=== PATIENT | male | born 2000 | race Caucasian/White ===

== ENCOUNTER 2024-06-09 16:04 | Emergency (ER) | payer OTHER ==
[2024-06-09] MEDS: Diphtheria,Pertussis(Acell),Tetanus Vaccine 0.5 ML Syringe IM ONE (16:36)
[2024-06-09 17:22] VITALS: BP 120/58; PULSE 75
== END 2024-06-09 17:23 | disposition home or self-care (01) ==
LOC: MW.ED 16:04
DX: S61.412A Laceration without foreign body of left hand, initial encounter (principal); W26.0XXA Contact with knife, initial encounter; Z23 Encounter for immunization
CPT/HCPCS: 12001; 90471; 90715; 99282-25